=== PATIENT | female | born 1975 | race Hispanic/Latino ===

== ENCOUNTER 2019-04-05 22:45 | Emergency (ER) | payer MEDICAID, OTHER ==
[2019-04-05 23:16] LABS: BASOPHILS % (AUTO) 0.6 % (0.0-5.0); EOSINOPHILS % (AUTO) 10.3 % (0.0-8.0); HEMATOCRIT 36.3 % (36-48); LYMPHOCYTES % (AUTO) 37.5 % (21.0-51.0); MEAN CORPUSCULAR HEMOGLOBIN 29.4 pg (27.0-33.0); MEAN CORPUSCULAR HGB CONC 34.2 g/dL (32.0-36.0); MONOCYTES % (AUTO) 4.1 % (3.0-13.0); PLATELET COUNT (AUTO) 345 K/uL (130-400); RED BLOOD CELL COUNT(AUTO) 4.22 MIL/uL (4.00-5.50)
[2019-04-05] MEDS ORDERED: ONDANSETRON HCL 4 MG/2 ML VIAL ONE (23:20)
[2019-04-05] MEDS ORDERED: HYOSCYAMINE SULFATE 0.125 MG TAB.SUBL SL ONE (23:20)
[2019-04-05] MEDS ORDERED: FAMOTIDINE/PF 20 MG/2 ML VIAL IV ONE (23:21)
[2019-04-05] MEDS ORDERED: SODIUM CHLORIDE 0.9% 1000ML 1,000 ML IV ONE (23:22)
[2019-04-05 23:29] LABS: POTASSIUM 3.3 mmol/L (3.5-5.1)
[2019-04-05 23:35] LABS: ALBUMIN 3.3 g/dL (3.5-5.0); BILIRUBIN,TOTAL 0.2 mg/dL (0.2-1.0); INR 0.88 (0.85-1.15); PARTIAL THROMBOPLASTIN TIME 26.3 SEC (26.3-35.5); PROTHROMBIN TIME 9.3 SEC (9.6-11.6); TOTAL PROTEIN, SERUM 7.4 g/dL (6.0-8.3)
[2019-04-05] MEDS ORDERED: IOHEXOL-350 75 ML VIAL IV ONE (23:59)
[2019-04-06] MEDS ORDERED: SODIUM CHLORIDE 0.9% 1000ML 1,000 ML IV ONE (00:03)
[2019-04-06] MEDS ORDERED: METOCLOPRAMIDE 10 MG/2 ML VIAL ONE (00:11)
[2019-04-06 00:45] LABS: BILIRUBIN,URINE Negative (NEGATIVE); COLOR,URINE Yellow (YELLOW); GLUCOSE, URINE (UA) >=1000 mg/dL (NEGATIVE); KETONES,URINE Negative (NEGATIVE); LEUKOCYTE ESTERASE ,URINE Moderate (NEGATIVE); NITRATE,URINE Negative (NEGATIVE); OCCULT BLOOD,URINE Negative (NEGATIVE); PROTEIN,URINE Negative (NEGATIVE); UROBILINOGEN,URINE 0.2 mg/dL (0.2-1.0)
[2019-04-06 00:49] LABS: APPEARANCE,URINE SLIGHTLY CLOUDY (CLEAR)
[2019-04-06 00:57] LABS: BACTERIA,URINE Few /HPF (None Seen); RBC,URINE 0-1 /HPF (0-1)
[2019-04-06] MEDS ORDERED: LEVOFLOXACIN 500 MG TABLET ONE (01:00)
== END 2019-04-06 01:27 | disposition home or self-care (01) ==
LOC: EDH 22:45
DX: E86.9 Volume depletion, unspecified (principal); R10.9 Unspecified abdominal pain; R19.7 Diarrhea, unspecified; E11.9 Type 2 diabetes mellitus without complications; Z90.49 Acquired absence of other specified parts of digestive tract; Z90.710 Acquired absence of both cervix and uterus
CPT/HCPCS: 36415; 74177; 80053; 81001; 83605; 83690; 84484; 85025; 85610; 85730; 93005; 96361; 96374; 96375 ×2; 99285; J2405; J2765; J3490; J7030 ×2; Q9967

== ENCOUNTER 2019-06-19 11:47 | Emergency (ER) | payer MEDICAID ==
[2019-06-19 13:50] LABS: BASOPHILS % (AUTO) 0.8 % (0.0-5.0); EOSINOPHILS % (AUTO) 10.4 % (0.0-8.0); HEMATOCRIT 39.4 % (36-48); LYMPHOCYTES % (AUTO) 24.4 % (21.0-51.0); MEAN CORPUSCULAR HEMOGLOBIN 29.5 pg (27.0-33.0); MEAN CORPUSCULAR VOLUME 86.8 fL (79-99); MONOCYTES % (AUTO) 3.6 % (3.0-13.0); NEUTROPHILS % (AUTO) 60.5 % (40.0-77.0); PLATELET COUNT (AUTO) 323 K/uL (130-400); RED BLOOD CELL COUNT(AUTO) 4.54 MIL/uL (4.00-5.50); RED CELL DISTRIBUTION WIDTH 11.8 % (11.0-15.5); WHITE BLOOD COUNT (AUTO) 7.5 K/uL (4.8-10.8)
[2019-06-19 14:09] LABS: CREATININE 0.9 mg/dL (0.5-1.5); POTASSIUM 3.8 mmol/L (3.5-5.1)
[2019-06-19] MEDS ORDERED: LIDOCAINE HCL 2% VISCOUS 15 ML UDCUP ONE (14:11)
[2019-06-19] MEDS ORDERED: MAG HYDROX/AL HYDROX/SIMETH ES 30 ML SUSP UDCUP ONE (14:11)
[2019-06-19 14:14] LABS: ALBUMIN 3.8 g/dL (3.5-5.0); BILIRUBIN,TOTAL 0.4 mg/dL (0.2-1.0); TOTAL PROTEIN, SERUM 7.8 g/dL (6.0-8.3)
[2019-06-19] MEDS ORDERED: NITROGLYCERIN 0.4 MG SL TAB SL ONE (16:05)
== END 2019-06-19 17:03 | disposition home or self-care (01) ==
LOC: EDH 11:47
DX: R13.10 Dysphagia, unspecified (principal); R06.02 Shortness of breath; R07.89 Other chest pain; E11.9 Type 2 diabetes mellitus without complications; I10 Essential (primary) hypertension
CPT/HCPCS: 36415; 71046; 80053; 82550; 84484; 85025; 93005

== ENCOUNTER 2019-06-20 11:23 | Emergency (ER) | payer MEDICAID ==
[2019-06-20] MEDS ORDERED: LORAZEPAM 2 MG/ML 1 ML VIAL ONE (12:29)
[2019-06-20 12:42] LABS: BASOPHILS % (AUTO) 0.8 % (0.0-5.0); EOSINOPHILS % (AUTO) 10.9 % (0.0-8.0); HEMATOCRIT 42.4 % (36-48); LYMPHOCYTES % (AUTO) 23.8 % (21.0-51.0); MEAN CORPUSCULAR HEMOGLOBIN 29.6 pg (27.0-33.0); MEAN CORPUSCULAR VOLUME 87.2 fL (79-99); MONOCYTES % (AUTO) 3.6 % (3.0-13.0); NEUTROPHILS % (AUTO) 60.5 % (40.0-77.0); PLATELET COUNT (AUTO) 331 K/uL (130-400); RED BLOOD CELL COUNT(AUTO) 4.86 MIL/uL (4.00-5.50); RED CELL DISTRIBUTION WIDTH 11.8 % (11.0-15.5); WHITE BLOOD COUNT (AUTO) 7.8 K/uL (4.8-10.8)
[2019-06-20 12:59] LABS: CREATININE 1.1 mg/dL (0.5-1.5); POTASSIUM 3.9 mmol/L (3.5-5.1)
[2019-06-20] MEDS ORDERED: SODIUM CHLORIDE 0.9% 1000ML 1,000 ML IV ONE (13:45)
[2019-06-20] MEDS ORDERED: INSULIN HUMULIN R 100 UNIT/ML 3ML ONE (13:45)
[2019-06-29] MEDS ORDERED: METF750T46 PO (08:23)
[2019-06-29] MEDS ORDERED: GLIM4TAB36 PO (08:23)
[2019-06-29] MEDS ORDERED: ENAL10TA PO (08:23)
== END 2019-06-20 14:44 | disposition home or self-care (01) ==
LOC: EDH 11:23
DX: R13.10 Dysphagia, unspecified (principal); R11.2 Nausea with vomiting, unspecified; R19.7 Diarrhea, unspecified; E11.65 Type 2 diabetes mellitus with hyperglycemia; I10 Essential (primary) hypertension
CPT/HCPCS: 36415; 80048; 82948; 85025; 93005; 96361; 96372; 96374; 99284; J1815; J2060; J7030

== ENCOUNTER 2019-06-29 07:04 | Day surgery (SDC) | payer MEDICAID ==
[~2019-06-29] VITALS: Ht 162.6 cm; Wt 106.6 kg
[~2019-06-29 07:04] MED LIST: SODIUM CHLORIDE 0.9% 1000ML 1,000 ML IV ONE
[2019-06-29 07:53] VITALS: BP 127/64
[2019-06-29] MEDS ORDERED: PROPOFOL 10 MG/ML 20ML VIAL IV ONE (08:22)
[2019-06-29] MEDS ORDERED: METF750T46 PO ×2 (08:23)
[2019-06-29] MEDS ORDERED: ENAL10TA18 PO ×2 (08:23)
[2019-06-29] MEDS ORDERED: GLIM4TAB36 PO ×2 (08:23)
[2019-06-29 08:34] VITALS: BP 118/68
[2019-06-29 08:39] VITALS: BP 122/67
[2019-06-29 08:44] VITALS: BP 120/57
== END 2019-06-29 09:30 | disposition home or self-care (01) ==
LOC: DAH 07:04
PROVIDERS: ATTEND Internal Medicine Gastroenterology
DX: R13.10 Dysphagia, unspecified (principal); K22.2 Esophageal obstruction; I10 Essential (primary) hypertension; E11.9 Type 2 diabetes mellitus without complications; F17.210 Nicotine dependence, cigarettes, uncomplicated; Z98.891 History of uterine scar from previous surgery; Z79.84 Long term (current) use of oral hypoglycemic drugs; Z79.899 Other long term (current) drug therapy; Z79.82 Long term (current) use of aspirin
CPT/HCPCS: 43235; 82948 ×2; A4215; A4221; A4222; A4223; A4606; A4620; A4663; J2704; J7030

== ENCOUNTER 2019-07-04 02:49 | Emergency (ER) | payer MEDICAID ==
[~2019-07-04 02:49] MED LIST changes: +ENAL10TA18 PO; +GLIM4TAB36 PO; +METF750T46 PO; -SODIUM CHLORIDE 0.9% 1000ML 1,000 ML IV ONE
[2019-07-04] MEDS ORDERED: ONDANSETRON HCL 4 MG/2 ML VIAL ONE (03:14)
[2019-07-04] MEDS ORDERED: METOCLOPRAMIDE 10 MG/2 ML VIAL ONE (03:14)
[2019-07-04] MEDS ORDERED: FAMOTIDINE/PF 20 MG/2 ML VIAL IV ONE (03:15)
[2019-07-04 03:22] LABS: BASOPHILS % (AUTO) 0.8 % (0.0-5.0); EOSINOPHILS % (AUTO) 12.7 % (0.0-8.0); HEMATOCRIT 38.8 % (36-48); LYMPHOCYTES % (AUTO) 29.8 % (21.0-51.0); MEAN CORPUSCULAR HEMOGLOBIN 29.5 pg (27.0-33.0); MEAN CORPUSCULAR HGB CONC 34.5 g/dL (32.0-36.0); MEAN CORPUSCULAR VOLUME 85.3 fL (79-99); MONOCYTES % (AUTO) 4.7 % (3.0-13.0); NEUTROPHILS % (AUTO) 51.6 % (40.0-77.0); PLATELET COUNT (AUTO) 299 K/uL (130-400); RED BLOOD CELL COUNT(AUTO) 4.55 MIL/uL (4.00-5.50); RED CELL DISTRIBUTION WIDTH 11.8 % (11.0-15.5); WHITE BLOOD COUNT (AUTO) 7.7 K/uL (4.8-10.8)
[2019-07-04 03:26] LABS: POTASSIUM 3.7 mmol/L (3.5-5.1)
[2019-07-04 03:32] LABS: ALBUMIN 3.7 g/dL (3.5-5.0); BILIRUBIN,TOTAL 0.3 mg/dL (0.2-1.0); TOTAL PROTEIN, SERUM 7.5 g/dL (6.0-8.3)
[2019-07-04 03:53] LABS: INR 0.88 (0.85-1.15); PARTIAL THROMBOPLASTIN TIME 27.1 SEC (26.3-35.5); PROTHROMBIN TIME 9.5 SEC (9.6-11.6)
[2019-07-04] MEDS ORDERED: MAG HYDROX/AL HYDROX/SIMETH ES 30 ML SUSP UDCUP ONE (04:15)
[2019-07-04] MEDS ORDERED: LIDOCAINE HCL 2% VISCOUS 15 ML UDCUP ONE (04:15)
== END 2019-07-04 04:35 | disposition home or self-care (01) ==
LOC: EDH 02:49
DX: K21.9 Gastro-esophageal reflux disease without esophagitis (principal); E11.9 Type 2 diabetes mellitus without complications; I10 Essential (primary) hypertension; Z90.49 Acquired absence of other specified parts of digestive tract; Z90.710 Acquired absence of both cervix and uterus; Z98.890 Other specified postprocedural states
CPT/HCPCS: 36415; 71045; 80053; 82550; 83690; 84484; 85025; 85610; 85730; 93005; 96374; 96375; 99285; J2405; J2765; J3490

== ENCOUNTER 2020-11-16 05:43 | Emergency (ER) | payer MEDICAID ==
[~2020-11-16] VITALS: Ht 162.6 cm; Wt 105.2 kg
[2020-11-16 06:19] LABS: BASOPHILS % (AUTO) 1.1 % (0.0-5.0); EOSINOPHILS % (AUTO) 6.3 % (0.0-8.0); HEMATOCRIT 38.6 % (36-48); LYMPHOCYTES % (AUTO) 27.2 % (21.0-51.0); MEAN CORPUSCULAR HEMOGLOBIN 29.3 pg (27.0-33.0); MEAN CORPUSCULAR HGB CONC 32.9 g/dL (32.0-36.0); MEAN CORPUSCULAR VOLUME 88.9 fL (79-99); MONOCYTES % (AUTO) 4.7 % (3.0-13.0); NEUTROPHILS % (AUTO) 60.4 % (40.0-77.0); PLATELET COUNT (AUTO) 274 K/uL (130-400); RED BLOOD CELL COUNT(AUTO) 4.34 MIL/uL (4.00-5.50); RED CELL DISTRIBUTION WIDTH 12.5 % (11.0-15.5); WHITE BLOOD COUNT (AUTO) 7.5 K/uL (4.8-10.8)
[2020-11-16 06:37] LABS: ALBUMIN 3.4 g/dL (3.5-5.0); BILIRUBIN,TOTAL 0.3 mg/dL (0.2-1.0); CREATININE 0.9 mg/dL (0.5-1.5); TOTAL PROTEIN, SERUM 7.3 g/dL (6.0-8.3)
[2020-11-16] MEDS ORDERED: METOCLOPRAMIDE 10 MG/2 ML VIAL ONE (06:43)
[2020-11-16] MEDS ORDERED: FAMOTIDINE 20MG VIAL IV ONE (06:43)
[2020-11-16] MEDS ORDERED: ONDANSETRON 4MG INJ ONE (06:43)
[2020-11-16] MEDS ORDERED: 0.9%NACL 1000ML 1,000 ML IV SCH (07:00)
[2020-11-16] MEDS ORDERED: FAMOTIDINE 20MG VIAL IV SCH (07:00)
[2020-11-16] MEDS ORDERED: METOCLOPRAMIDE 10 MG/2 ML VIAL IVP SCH (07:00)
[2020-11-16] MEDS ORDERED: ONDANSETRON 4MG INJ IVP SCH (07:00)
[2020-11-16 07:02] LABS: APPEARANCE,URINE CLEAR (CLEAR); BILIRUBIN,URINE NEGATIVE (NEGATIVE); COLOR,URINE YELLOW (YELLOW); GLUCOSE, URINE (UA) 500 mg/dL (NEGATIVE); KETONES,URINE NEGATIVE (NEGATIVE); LEUKOCYTE ESTERASE ,URINE NEGATIVE (NEGATIVE); NITRATE,URINE NEGATIVE (NEGATIVE); OCCULT BLOOD,URINE NEGATIVE (NEGATIVE); PROTEIN,URINE 100 mg/dL (NEGATIVE); UROBILINOGEN,URINE 0.2 mg/dL (0.2-1.0)
[2020-11-16 07:09] LABS: BACTERIA,URINE Few /HPF (None Seen); RBC,URINE 0-1 /HPF (0-1); SQUAMOUS EPITHELIAL CELL,UR Few /HPF (0-2)
[2020-11-16] MEDS ORDERED: FAMO-136 PO (09:15)
[2020-11-16 09:26] VITALS: BP 145/76
== END 2020-11-16 09:27 | disposition home or self-care (01) ==
LOC: EDH 05:43
DX: K29.70 Gastritis, unspecified, without bleeding (principal); Z79.84 Long term (current) use of oral hypoglycemic drugs; Z79.899 Other long term (current) drug therapy
CPT/HCPCS: 36415; 76705; 80053; 81001; 83690; 85025; 96361; 96374; 96375; 99284; J2405; J2765; J7030; S0028; J3490

== ENCOUNTER 2021-05-18 13:55 | Emergency (ER) | payer MEDICAID ==
[~2021-05-18] VITALS: Ht 162.6 cm; Wt 102.1 kg
[~2021-05-18 13:55] MED LIST changes: +FAMO-136 PO
[2021-05-18] MEDS ORDERED: SOLU-MEDROL 125MG VIAL IM ONE (14:30)
[2021-05-18] MEDS ORDERED: PRED20TA3 PO (14:30)
[2021-05-18 14:44] VITALS: BP 162/82
== END 2021-05-18 14:45 | disposition home or self-care (01) ==
LOC: EDH 13:55
DX: I10 Essential (primary) hypertension (principal); Z79.84 Long term (current) use of oral hypoglycemic drugs; Z79.899 Other long term (current) drug therapy; Z98.890 Other specified postprocedural states
CPT/HCPCS: 96372; 99283; J2930

== ENCOUNTER 2021-11-29 04:13 | Emergency (ER) | payer MEDICAID ==
[~2021-11-29] VITALS: Ht 160 cm; Wt 101.6 kg
[~2021-11-29 04:13] MED LIST changes: +PRED20TA3 PO
[2021-11-29 04:48] LABS: EOSINOPHILS % (AUTO) 5.1 % (0.0-8.0); LYMPHOCYTES % (AUTO) 36.5 % (21.0-51.0); MEAN CORPUSCULAR HEMOGLOBIN 30.5 pg (27.0-33.0); MEAN CORPUSCULAR VOLUME 89.7 fL (79-99); MONOCYTES % (AUTO) 4.9 % (3.0-13.0); PLATELET COUNT (AUTO) 309 K/uL (130-400); RED CELL DISTRIBUTION WIDTH 11.7 % (11.0-15.5)
[2021-11-29 04:49] LABS: APPEARANCE,URINE CLOUDY (CLEAR); BILIRUBIN,URINE NEGATIVE (NEGATIVE); COLOR,URINE LIGHT-YELLOW (YELLOW); GLUCOSE, URINE (UA) NEGATIVE (NEGATIVE); KETONES,URINE NEGATIVE (NEGATIVE); LEUKOCYTE ESTERASE ,URINE 75 Leu/uL (NEGATIVE); NITRATE,URINE NEGATIVE (NEGATIVE); OCCULT BLOOD,URINE NEGATIVE (NEGATIVE); PROTEIN,URINE 50 mg/dL (NEGATIVE); UROBILINOGEN,URINE 0.2 mg/dL (0.2-1.0)
[2021-11-29 04:55] LABS: CREATININE 1.3 mg/dL (0.5-1.5); POTASSIUM 4.3 mmol/L (3.5-5.1)
[2021-11-29 04:56] LABS: BACTERIA,URINE RARE /HPF (None Seen); MUCUS,URINE RARE LPF (None Seen); SQUAMOUS EPITHELIAL CELL,UR MANY /HPF (0-2)
[2021-11-29 04:59] LABS: ALBUMIN 3.5 g/dL (3.5-5.0); TOTAL PROTEIN, SERUM 7.6 g/dL (6.0-8.3)
[2021-11-29] MEDS ORDERED: CEFTRIAXONE 1G VIAL IVP ONE (05:30)
[2021-11-29 05:46] VITALS: BP 146/77
[2021-11-29] MEDS ORDERED: PANTOPRAZOLE 40 MG/VIAL IVP ONE (06:00)
[2021-11-29] MEDS ORDERED: MACR100 PO (06:37)
[2021-11-29] MEDS ORDERED: OMEP40CA21 PO (06:37)
== END 2021-11-29 06:50 | disposition home or self-care (01) ==
LOC: EDH 04:13
DX: K29.70 Gastritis, unspecified, without bleeding (principal); N39.0 Urinary tract infection, site not specified; E11.9 Type 2 diabetes mellitus without complications; I10 Essential (primary) hypertension; Z79.52 Long term (current) use of systemic steroids; Z79.84 Long term (current) use of oral hypoglycemic drugs
CPT/HCPCS: 99284; 96374; 96375; 84484; 80053; 83690; 85025; 87088; 81001; 36415; 93005; J0696; S0164; C9113

== ENCOUNTER 2023-05-02 10:49 | Emergency (ER) | payer BC, MEDICAID ==
[~2023-05-02] VITALS: Ht 160 cm; Wt 112.9 kg
[~2023-05-02 10:49] MED LIST changes: +ENAL-89 PO; -ENAL10TA18 PO; +MACR100 PO; +OMEP40CA21 PO
[2023-05-02] MEDS: CEFTRIAXONE 1G VIAL IM ONE (12:31)
[2023-05-02] MEDS: SULFAMETHOX-TMP DS 800/160 TAB PO SCH (12:31)
[2023-05-02] MEDS ORDERED: SULF1TAB42 PO (13:05)
[2023-05-02] MEDS ORDERED: CEPH500B PO (13:05)
[2023-05-02 13:13] VITALS: BP 135/62; PULSE 78; RESP 18; O2SAT 100
== END 2023-05-02 13:19 | disposition home or self-care (01) ==
LOC: EDH 10:49
DX: K13.0 Diseases of lips (principal); I10 Essential (primary) hypertension; E11.9 Type 2 diabetes mellitus without complications; Z90.710 Acquired absence of both cervix and uterus; Z79.84 Long term (current) use of oral hypoglycemic drugs; Z79.899 Other long term (current) drug therapy
CPT/HCPCS: 99284; 96372; J0696